=== PATIENT | female | born 1975 | race African-American/Black ===

== ENCOUNTER 2018-09-24 13:46 | Observation (INO) | payer OTHER ==
[2018-09-24 14:37] LABS: #Basophils 0.1 thou/uL (0.0-0.2); #Eosinphils 0.1 thou/uL (0.0-0.7); #Lymphocytes 2.8 thou/uL (1.20-3.40); #Monocytes 0.6 thou/uL (0.11-0.59); #Neutrophils 4.2 thou/uL (1.40-6.50); %Basophils 1.7 % (0.0-1.0); %Eosinophils 1.1 % (0.0-10.0); %Lymphocytes 35.7 % (21.0-51.0); %Monocytes 7.3 % (0.0-10.0); %Neutrophils 54.1 % (42.0-75.0); Hemoglobin 5.5 g/dL (12.0-16.0); Mean Corpuscular Hemoglobin 14.9 pg (27.0-31.0); Mean Platelet Volume 5.8 fL (7.4-10.4); Platelet Count 606 thou/uL (130-400); RBC Distribution Width 19.6 % (11.5-14.5); Red Blood Cell (RBC) Count 3.68 mill/uL (4.20-5.40); White Blood Cell (WBC) Count 7.7 thou/uL (4.8-10.8)
[2018-09-24 15:04] LABS: Albumin 4.3 g/dL (3.5-5.0); Alkaline Phosphatase 70 U/L (40-150); Bilirubin, Total 0.4 mg/dL (0.2-1.2); Calc. Creatinine Clearance 0 mL/min (70-130); Calcium 9.5 mg/dL (7.8-10.44); Carbon Dioxide 26 mmol/L (22-29); Chloride 103 mmol/L (98-107); Estimated GFR-MDRD 84; Globulin 3.7 g/dL (2.4-3.5); Glucose 95 mg/dL (70-105); Potassium 3.8 mmol/L (3.5-5.1); Sodium 137 mmol/L (136-145)
[2018-09-24 15:05] LABS: BUN (Urea Nitrogen) 8 mg/dL (7.0-18.7)
[2018-09-24 15:06] LABS: AST (SGOT) 12 U/L (5-34)
[2018-09-24 15:07] LABS: ALT (SGPT) Less than 7 U/L (8-55)
[2018-09-24 15:09] LABS: Anisocytosis MODERATE=16-30 cells (100X) (0-5/hpf); Hypochromia MODERATE=16-30 cells (100X) (0-5/hpf); MDiff Complete? YES; Microcytosis MODERATE=15-30 cells (100X) (0-5/hpf); Ovalocytes SLIGHT = 2-5 cells (100X) (0-1/hpf); Platelet Morphology Comment Appears Increased; Poikilocytosis SLIGHT = 6-15 cells (100X) (0-5/hpf); Polychromasia MODERATE = 3-4 cells (100X) (0-2/hpf); Reflex for Review?? YES; Schistocytes SLIGHT = 2-5 cells (100X) (0-1/hpf); Spherocytes SLIGHT = 1-5 cells (100X) (None Seen); Target Cells SLIGHT = 2-5 cells (100X) (0-1/hpf); Tear Drops SLIGHT = 2-5 cells (100X) (0-1/hpf)
[2018-09-24 15:15] LABS: Anion Gap 11 mmol/L (10-20)
--- NOTE | 2018-09-24 16:57 | PDOC.FPRHP ---
- History of Present Illness Chief Complaint: Tired, SOB History of Present Illness: 42 yo AA freedom impaired F came in after found at outside [facility] to be severly anemic. Pt reports having increasing tiredness and SOB after walking a short distance. Had labs drawn at [facility] and hgb was found to be 5.5. Pt reports having monthly period. Reports menstration as heavy. States she has to use 1 tampon and 3 pads and changes this 3-4x a day. Pt reports this going on for months. Denies any abdominal pain. Denies any n/v/d/c. Denies any blood in her stool. Reports having headaches and feeling more tired than usual. Pt had pap smear a week ago which was normal Pt is a delivered via all w/o any complications. - Allergies/Adverse Reactions Allergies Allergy/AdvReac Type Severity Reaction Status Date / Time No Known Allergies Allergy Unverified 09/24/18 16:57 - Home Medications Medication Instructions Recorded Confirmed Type No Known 09/24/18 09/24/18 History - History PMHx: None PSHx: None FHx: Noncontributory Social: Past marijuana user, Denies alcohol or tobacco abuse - Review of Systems General: reports: fatigue. denies: fever/chills, weight/appetite/sleep changes Eyes: denies: eye pain, vision changes ENT: denies: nasal congestion, rhinorrhea Respiratory: reports: exercise intolerance. denies: cough, congestion, shortness of breath Cardiovascular: denies: chest pain, palpitation, edema Gastrointestinal: denies: nausea, vomiting, diarrhea, constipation, abdominal pain, GI bleeding Genitourinary: denies: incontinence, dysuria, polyuria Skin: denies: rashes, lesions Musculoskeletal: denies: pain, tenderness Neurological: denies: numbness, syncope, seizure, weakness Psychological: denies: anxiety, depression - Vital signs BP: [122/80] HR: [87] RR: [16] Tmax: [98.2] Pox: [100]% on [RA] - Physical Exam Constitutional: NAD, awake, alert and oriented, well developed HEENT: normocephalic and atraumatic, grossly normal vision, grossly normal hearing, good dention Neck: trachea midline, no LAD, no JVD, no thyromegaly Chest: no-tender to palpation, no lesions Heart: RRR, normal S1/S2, no murmurs/rubs/gallops, pulses present, no edema Lungs: CTAB, no respiratory distress, good air movement, no rales/rhonchi, no wheezing Abdomen: soft, non-tender, bowel sounds present, no masses/distention, no hernias Neurological: no focal deficit, normal sensation Skin: no rash/lesions, capillary refill <2 seconds Heme/Lymphatic: no unusual bruising or bleeding, no purpura Psychiatric: normal mood and affect, good judgment and insight, intact recent and remote memory FMR H&P: Results - Labs Result Diagrams: 09/25/18 06:01 09/24/18 14:20 Lab results: WBC 7.7 thou/uL (4.8-10.8) 09/24/18 14:20 Hgb 5.5 g/dL (12.0-16.0) L* 09/24/18 14:20 Hct 20.3 % (36.0-47.0) L 09/24/18 14:20 MCV 55.0 fL (78.0-98.0) L 09/24/18 14:20 Plt Count 606 thou/uL (130-400) H 09/24/18 14:20 Neutrophils % 54.1 % (42.0-75.0) 09/24/18 14:20 Sodium 137 mmol/L (136-145) 09/24/18 14:20 Potassium 3.8 mmol/L (3.5-5.1) 09/24/18 14:20 Chloride 103 mmol/L (98-107) 09/24/18 14:20 Carbon Dioxide 26 mmol/L (22-29) 09/24/18 14:20 BUN 8 mg/dL (7.0-18.7) 09/24/18 14:20 Creatinine 0.76 mg/dL (0.6-1.1) 09/24/18 14:20 Glucose 95 mg/dL (70-105) 09/24/18 14:20 Calcium 9.5 mg/dL (7.8-10.44) 09/24/18 14:20 Total Bilirubin 0.4 mg/dL (0.2-1.2) 09/24/18 14:20 AST 12 U/L (5-34) 09/24/18 14:20 ALT Less than 7 U/L (8-55) L 09/24/18 14:20 Alkaline Phosphatase 70 U/L (40-150) 09/24/18 14:20 Serum Total Protein 8.0 g/dL (6.0-8.3) 09/24/18 14:20 Albumin 4.3 g/dL (3.5-5.0) 09/24/18 14:20 FMR H&P: A/P - Problem List (1) Iron (Fe) deficiency anemia Current Visit: Yes Status: Acute Code(s): D50.9 - IRON DEFICIENCY ANEMIA, UNSPECIFIED (2) Abnormal uterine bleeding (AUB) Current Visit: Yes Status: Acute Code(s): N93.9 - ABNORMAL UTERINE AND VAGINAL BLEEDING, UNSPECIFIED - Plan Symptomatic Anemia 2/2 likely AUB -Hgb 5.5 upon admission. VS stable. Will transfuse 2uPRBC. Will recheck AM CBC and trend -Will get pelvic U/S. Advise pt continue workup outpatient for heavy menstration -Will check TSH DVT ppx- SCD's GERD ppx- Tums Addendum - Attending - Attending Attestation Date/Time: 09/25/18 1790 I personally evaluated the patient and discussed the management with Dr. Grady on 08/25/2018 I agree with the History, Examination, Assessment and Plan documented above with any addition or exceptions noted below- 42 yo female presented with fatigue , SOB for last 2-3 months worsening in the last week. Seen at [facility] [place] [facility] and lab studies found hemoglobin=5.5. Patient sent to hospital for further evacuation. Patient denies any hematochezia, melena. Does report heavy menstrual cycles for the last year. States that her menses usually lasts 5 days and she uses a tampon and 3 pads every 3-4 hours. She also reports that over last 6 months she has an additional 2 days of bleeding about 1 week after her menses ends. Denies any family history of bleeding disorders. PMH/PSH/Meds/ All reviewed and agree with resident's documentation. T98.3 BP 133/777 P80 RR16 Exam repeated by me and agree with resident's findings. Labs: H/H=5.5/20.3 , WBC=7.7, Pee=202. A/P: 1) Iron deficiency anemia secondary to abnormal uterine bleeding- will transfuse 2u pRBCs. Recheck H/H in AM. Start iron replacement. 2) Abnormal uterine bleeding- will check pelvic usg. Patient reports normal pap smear 2 weeks ago. May consider hormonal therapy versus referral to [facility] for surgical evaluation.
[2018-09-24] MEDS ORDERED: Bisacodyl 5 MG TAB PO PRN (17:08)
[2018-09-24] MEDS ORDERED: Ondansetron PF 4 MG/2 ML Vial IVP PRN (17:08)
[2018-09-24] MEDS ORDERED: Calcium Carbonate 500 MG ChewTAB PO PRN (17:08)
[2018-09-24] MEDS ORDERED: Ondansetron ODT 4 MG TAB PO PRN (17:08)
[2018-09-24] MEDS ORDERED: Ferrous Sulfate 325 MG TAB PO SCH ×2 (17:08→20:00)
[2018-09-24] MEDS ORDERED: Acetaminophen 650 MG Suppository PR PRN (17:08)
[2018-09-24] MEDS ORDERED: Bisacodyl 10 MG SUPP PR PRN (17:08)
[2018-09-24] MEDS ORDERED: Acetaminophen 325 MG TAB PO PRN (17:08)
[2018-09-24 17:26] VITALS: BMI 36.4
[2018-09-25 06:20] LABS: #Eosinphils 0.1 thou/uL (0.0-0.7); #Lymphocytes 2.8 thou/uL (1.20-3.40); #Monocytes 0.7 thou/uL (0.11-0.59); #Neutrophils 4.7 thou/uL (1.40-6.50); %Basophils 0.6 % (0.0-1.0); %Eosinophils 1.5 % (0.0-10.0); %Lymphocytes 33.5 % (21.0-51.0); %Monocytes 8.2 % (0.0-10.0); %Neutrophils 56.2 % (42.0-75.0); Hemoglobin 7.6 g/dL (12.0-16.0); Mean Corpuscular HGB CONC 29.5 g/dL (32.0-36.0); Mean Corpuscular Hemoglobin 18.5 pg (27.0-31.0); Mean Corpuscular Volume 62.7 fL (78.0-98.0); Mean Platelet Volume 5.4 fL (7.4-10.4); Platelet Count 507 thou/uL (130-400); RBC Distribution Width 27.5 % (11.5-14.5); Red Blood Cell (RBC) Count 4.09 mill/uL (4.20-5.40); White Blood Cell (WBC) Count 8.3 thou/uL (4.8-10.8)
--- NOTE | 2018-09-25 06:45 | PDOC.FM ---
- Subjective Subjective: Patient reports feeling better this morning. Denies dizziness or lightheadedness with ambulation. Has heavy menstrual periods but no intermenstrual bleeding. - Objective Vital Signs & Weight: Vital Signs (12 hours) Temp Pulse Pulse Resp BP BP Pulse Ox 09/25/18 04:12 98.1 F 78 18 113/69 100 09/25/18 00:14 98.0 F 85 18 115/71 100 09/24/18 22:05 97.5 F L 88 18 102/77 100 09/24/18 21:45 98.5 F 82 18 114/73 100 09/24/18 20:00 97.5 F L 88 18 102/77 100 09/24/18 19:02 98.5 F 100 Weight Weight 96.298 kg Most Recent Monitor Data Heart Rate from ECG 90 NIBP 118/66 Respiration from ECG 16 I&O: 09/23/18 09/24/18 09/25/18 06:59 06:59 06:59 Intake Total 350 Balance 350 Result Diagrams: 09/25/18 06:01 09/24/18 14:20 Phys Exam - Physical Examination Constitutional: NAD Respiratory: clear to auscultation bilateral Cardiovascular: RRR Gastrointestinal: soft, non-tender Musculoskeletal: no edema Neurological: non-focal Psychiatric: normal affect Skin: normal turgor Dx/Plan (1) Symptomatic anemia Code(s): D64.9 - ANEMIA, UNSPECIFIED Status: Acute (2) Abnormal uterine bleeding (AUB) Code(s): N93.9 - ABNORMAL UTERINE AND VAGINAL BLEEDING, UNSPECIFIED Status: Acute (3) Iron (Fe) deficiency anemia Code(s): D50.9 - IRON DEFICIENCY ANEMIA, UNSPECIFIED Status: Acute (4) Fibroid Code(s): D21.9 - BENIGN NEOPLASM OF CONNECTIVE AND OTHER SOFT TISSUE, UNSP Status: Acute - Plan Plan: Symptomatic Anemia 2/2 AUB, fibroid -Hgb 5.5 upon admission. VS stable. s/p 2uPRBC. Hgb improved to 7.6 today -Will get pelvic U/S. Advise pt continue workup outpatient for heavy menstration -TSH wnl - US showed fibroid 7 cm - Patient would benefit greatly from hormonal therapy to suppress menstrual cycles and decrease bleeding. No family hx clots, pt nonsmoker. Recommended taking ibuprofen during menstruation as well. DVT ppx- SCD's GERD ppx- Tums Dispo: plan for discharge today with outpatient [facility] follow up for fibroid. Will discharge with iron supplement, hormonal pills, ibuprofen. Addendum - Attending - Attending Attestation Date/Time: 09/25/18 6185 I personally evaluated the patient and discussed the management with Dr. Chatman. I agree with the History, Examination, Assessment and Plan documented above with any addition or exceptions noted below. Patient here for symptomatic anemia in setting of AUB due to fibroids based on pelvic u/s. She is feeling improved today. Denies shortness of breath with exertion. Discussed hormonal ways to decrease her AUB as well as ibuprofen therapy. Anticipate discharge later today and will need outpatient PCP and OBGYN follow up.
--- NOTE | 2018-09-25 08:25 | ULT ---
Sonogram pelvis, transabdominal and transvaginal imaging with duplex evaluation HISTORY: Pelvic bleeding and pain. FINDINGS: Urinary bladder is decompressed. Uterus is enlarged with a very heterogeneous echotexture. It measures up to 11.0 cm. Along the posterior myometrium is a circumscribed heterogeneous hypoechoic mass measuring up to 7.4 cm x 7.3 cm x 5.3 cm. No free fluid apparent within the pelvis. Endometrium is 0.3 cm with small amount of fluid. Left ovary measures up to 3.5 cm with a dominant follicle. Good color and spectral Doppler flow. Right ovary not visualized with transabdominal or transvaginal imaging. No mass is apparent. IMPRESSION: Prominent fibroid involvement of the uterus. Largest is 7.4 cm.
[2018-09-25] MEDS: Ferrous Sulfate 325 MG TAB PO SCH ×2 (09:06→16:43)
[2018-09-25 11:17] VITALS: TEMP 98
[2018-09-25 16:44] VITALS: BP 121/85
== END 2018-09-25 16:49 ==
LOC: ERS 13:46 → T4-B 16:50
PROVIDERS: ADMIT Family Medicine; ATTEND Family Medicine
DX: D25.9 Leiomyoma of uterus, unspecified (principal); D50.9 Iron deficiency anemia, unspecified
CPT/HCPCS: 36415; 36430; 76856; 80053; 84443; 85025; 85060; 86850; 86900; 86901; 99285; G0378; P9016

== ENCOUNTER 2018-11-21 10:56 | Emergency (ER) | payer OTHER ==
--- NOTE | 2018-11-21 12:14 | ULT ---
EXAM: US Gallbladder RUQ CLINICAL HISTORY: Nausea. Vomiting. Right upper quadrant pain. COMPARISON: None. FINDINGS: Pancreas: The head of the pancreas has a normal echotexture. The remainder of the pancreas is obscur ed by bowel gas Liver:Normal hepatic parenchymal echotexture. No hepatic masses or intrahepatic biliary dilatation. C ontour of the hepatic margin is maintained. Right hepatic lobe measures 2.9 cm Portal vein: Patent with appropriate directional flow Gallbladder: Echogenic focus with shadowing in the lumen of gallbladder measuring 2.5 x 2.2 x 2.3 cm. Nonmobile gallstone is favored. The bladder is somewhat distended measuring 14 cm in maximum dimension. The bladder wall is not thickened. No pericholecystic fluid. Nava's sign:Negative Bile ducts: 0.3 Right kidney: No hydronephrosis. Right renal cortical thinning. Right kidney measures 12.4 x 4.6 x 5. 9 cm in length. IMPRESSION: 1. Sonographic evidence of cholelithiasis. Gallstone appears to be nonmobile. HIDA scan may be benefi cial.
[2018-11-21 12:32] LABS: #Lymphocytes 1.3 thou/uL (1.20-3.40); #Monocytes 0.2 thou/uL (0.11-0.59); #Neutrophils 12.7 thou/uL (1.40-6.50); %Basophils 0.3 % (0.0-1.0); %Lymphocytes 8.9 % (21.0-51.0); %Monocytes 1.2 % (0.0-10.0); %Neutrophils 89.5 % (42.0-75.0); Mean Corpuscular HGB CONC 31.5 g/dL (32.0-36.0); Mean Corpuscular Hemoglobin 24.3 pg (27.0-31.0); Mean Corpuscular Volume 77.1 fL (78.0-98.0); RBC Distribution Width 21.9 % (11.5-14.5); Red Blood Cell (RBC) Count 4.97 mill/uL (4.20-5.40); White Blood Cell (WBC) Count 14.2 thou/uL (4.8-10.8)
[2018-11-21 12:46] LABS: BHCG - Serum Negative (NEGATIVE); Pregs Control Background? CLEAR/WHITE (CLR/WHITE); Pregs Control Bar Appear? YES (CONTROL BAR)
[2018-11-21 12:48] LABS: Bacteria/HPF 4+ HPF (None Seen); Bilirubin Negative (Negative); Blood, Urine Negative (Negative); Clarity Clear (Clear); Glucose, Urine (Dipstick) Normal (Negative); Leukocyte Negative Leu/uL (Negative); Nitrite Negative (Negative); Protein, Urine (Dipstick) 30 mg/dL (Neg-Trace); RBC/HPF 0-3 HPF (0-3); Squamous Epithelial 0-3 HPF (0-3); Urobilinogen Normal mg/dL (Less than 2); WBC/HPF 0-3 HPF (0-3)
[2018-11-21] MEDS ORDERED: Ketorolac Tromethamine 30 MG/ML VIAL ONE (12:52)
[2018-11-21] MEDS ORDERED: Pantoprazole 40 MG VIAL ONE (12:52)
[2018-11-21] MEDS ORDERED: Ondansetron PF 4 MG/2 ML Vial ONE (12:52)
[2018-11-21 12:54] LABS: ALT (SGPT) 14 U/L (8-55); AST (SGOT) 17 U/L (5-34); Albumin 4.6 g/dL (3.5-5.0); Alkaline Phosphatase 76 U/L (40-110); Anion Gap 16 mmol/L (10-20); BUN (Urea Nitrogen) 7 mg/dL (7.0-18.7); Bilirubin, Total 0.3 mg/dL (0.2-1.2); Calc. Creatinine Clearance 0 mL/min (70-130); Calcium 9.8 mg/dL (7.8-10.44); Carbon Dioxide 23 mmol/L (22-29); Chloride 99 mmol/L (98-107); Estimated GFR-MDRD 84; Globulin 4.2 g/dL (2.4-3.5); Glucose 108 mg/dL (70-105); Lipase 22 U/L (8-78); Potassium 3.9 mmol/L (3.5-5.1); Protein, Total 8.8 g/dL (6.0-8.3); Sodium 134 mmol/L (136-145)
[2018-11-21 12:56] LABS: Elliptocytes SLIGHT = 2-5 cells (100X) (0-1/hpf); Hypochromia SLIGHT = 6-15 cells (100X) (0-5/hpf); MDiff Complete? YES; Mean Platelet Volume 5.3 fL (7.4-10.4); Microcytosis SLIGHT = 6-15 cells (100X) (0-5/hpf); Ovalocytes SLIGHT = 2-5 cells (100X) (0-1/hpf); Platelet Count 386 thou/uL (130-400); Platelet Morphology Comment Appears Adequate; Polychromasia SLIGHT = 2-3 cells (100X) (0-2/hpf); Schistocytes SLIGHT = 2-5 cells (100X) (0-1/hpf); Tear Drops SLIGHT = 2-5 cells (100X) (0-1/hpf)
== END 2018-11-21 15:11 | disposition still patient (30) ==
LOC: ERS 10:56
DX: K80.50 Calculus of bile duct without cholangitis or cholecystitis without obstruction (principal); K29.70 Gastritis, unspecified, without bleeding; D64.9 Anemia, unspecified
CPT/HCPCS: 36415; 76705; 80053; 81003; 81015; 83690; 84703; 85025; 93005; 96374; 96375; C9113; J1885; J2405

== ENCOUNTER 2019-01-26 13:34 | Observation (INO) | payer OTHER ==
[2019-01-26 16:18] LABS: #Eosinphils 0.1 thou/uL (0.0-0.7); #Lymphocytes 3.6 thou/uL (1.20-3.40); #Monocytes 0.6 thou/uL (0.11-0.59); #Neutrophils 5.4 thou/uL (1.40-6.50); %Basophils 0.3 % (0.0-1.0); %Eosinophils 0.7 % (0.0-10.0); %Lymphocytes 37.6 % (21.0-51.0); %Monocytes 5.9 % (0.0-10.0); %Neutrophils 55.6 % (42.0-75.0); Hemoglobin 11.7 g/dL (12.0-16.0); Mean Corpuscular HGB CONC 31.8 g/dL (32.0-36.0); Mean Corpuscular Hemoglobin 25.1 pg (27.0-31.0); Mean Corpuscular Volume 78.9 fL (78.0-98.0); Mean Platelet Volume 8.6 fL (7.4-10.4); Platelet Count 275 thou/uL (130-400); RBC Distribution Width 13.3 % (11.5-14.5); Red Blood Cell (RBC) Count 4.67 mill/uL (4.20-5.40); White Blood Cell (WBC) Count 9.6 thou/uL (4.8-10.8)
--- NOTE | 2019-01-26 16:35 | ULT ---
Sonogram right upper quadrant HISTORY: Right upper quadrant pain. Abnormal hepatobiliary scan. FINDINGS: Gallbladder is now distended up to 9.0 cm. Large shadowing stone again demonstrated within the lumen. No gallbladder wall thickening or pericholecystic fluid. Patient was Not tender over the gallbladder fossa at the time of the exam. Liver is unremarkable. No free fluid. IMPRESSION: Cholelithiasis. Gallbladder distention persists. This can be a finding with cystic duct o bstruction and acute cholecystitis. Obstruction also suggested by the abnormal hepatobiliary scan. Patient was not tender over the gallbladder fossa at the time of the exam. Clinical correlation regarding other signs and symptoms of acute cholecystitis is required.
[2019-01-26 16:40] LABS: ALT (SGPT) 12 U/L (8-55); AST (SGOT) 15 U/L (5-34); Albumin 4.1 g/dL (3.5-5.0); Alkaline Phosphatase 70 U/L (40-110); Anion Gap 11 mmol/L (10-20); BUN (Urea Nitrogen) 7 mg/dL (7.0-18.7); Bilirubin, Total 0.5 mg/dL (0.2-1.2); Calc. Creatinine Clearance 0 mL/min (70-130); Calcium 9.2 mg/dL (7.8-10.44); Carbon Dioxide 29 mmol/L (22-29); Chloride 103 mmol/L (98-107); Estimated GFR-MDRD Greater than 90; Globulin 3.5 g/dL (2.4-3.5); Glucose 79 mg/dL (70-105); Lipase 25 U/L (8-78); Potassium 3.5 mmol/L (3.5-5.1); Protein, Total 7.6 g/dL (6.0-8.3); Sodium 139 mmol/L (136-145)
[2019-01-26 18:55] VITALS: BMI 36.2
[2019-01-26] MEDS ORDERED: D5 1/2 NS w/20 mEq KCL 1,000 ML IV SCH (19:00)
[2019-01-26] MEDS ORDERED: Dextrose 5% in Water 1,000 ML IV PRN (20:06)
[2019-01-26] MEDS ORDERED: Morphine 2 MG/ML SYRINGE SLOW IVP PRN (20:06)
[2019-01-26] MEDS ORDERED: Dextrose 50% Abboject 50 ML SYRINGE SLOW IVP PRN (20:06)
[2019-01-26] MEDS ORDERED: Ondansetron PF 4 MG/2 ML Vial IVP PRN (20:06)
[2019-01-26] MEDS: D5 1/2 NS w/20 mEq KCL 1,000 ML IV SCH (21:13)
[2019-01-26] MEDS: Famotidine 20 MG TAB PO SCH (21:13)
[2019-01-27] MEDS: D5 1/2 NS w/20 mEq KCL 1,000 ML IV SCH ×3 (05:46→21:17)
[2019-01-27] MEDS: Famotidine 20 MG TAB PO SCH ×2 (09:02→21:16)
--- NOTE | 2019-01-27 12:16 | HP ---
CHIEF COMPLAINT: Right upper quadrant abdominal pain, cholelithiasis. HISTORY OF PRESENT ILLNESS: The patient is a very pleasant 43-year-old black female. She is an inmate at the [facility]. She gives a three month history of intermittent right upper quadrant abdominal pain. She was admitted to the hospital about 3 months ago for severe anemia and this is felt to be secondary to her menstrual periods. She was placed on supplemental iron therapy and oral contraceptive pill. It is noted that her hemoglobin level has risen from 7 up to 12. In evaluation of her abdominal pain, she had a HIDA scan performed. This revealed that no contrast entered the gallbladder, potentially consistent with acute cholecystitis. Gallbladder ultrasound was obtained revealing a large shadowing stone within the gallbladder. CBC and liver function tests were essentially normal. She is admitted at this time for management of her gallbladder. PAST MEDICAL HISTORY: Significant for blood loss anemia. PAST SURGICAL HISTORY: None. MEDICATIONS: Oral iron and oral contraceptive pill. ALLERGIES: NONE. PERSONAL AND SOCIAL HISTORY: She is from [place]. She has four children. She is incarcerated for a drug-related offense, but has never used illegal drugs other than marijuana. REVIEW OF SYSTEMS: Otherwise unremarkable. FAMILY HISTORY: Noncontributory. PHYSICAL EXAMINATION: VITAL SIGNS: She is afebrile. Vitals signs within normal limits. GENERAL: She is a well-developed, well-nourished, pleasant black female in no acute distress. She is alert and oriented x3. HEAD, EYES, EARS, NOSE, AND THROAT: Unremarkable. NECK: Supple without mass or tenderness. LUNGS: Clear to auscultation throughout. CARDIAC: Regular rate and rhythm without murmur. ABDOMEN: Soft. There is no focal tenderness on today's examination. EXTREMITIES: Unremarkable. ASSESSMENT: The patient with symptomatic potentially obstructing cholelithiasis. The ultrasound had indicated this was possibly a 4 cm gallstone. I recommended laparoscopic cholecystectomy. I explained to her, however, that if her gallbladder is in fact is large, then I have to make the extraction incision substantially larger to be able to remove the gallbladder and gallstone. She understands and agrees to proceed with surgery at this time. Job ID: [id number]
[2019-01-27] MEDS ORDERED: Lidocaine 1% PF 5 ML VIAL ONE (14:47)
[2019-01-28] MEDS ORDERED: D5 1/2 NS w/20 mEq KCL 1,000 ML ONE (05:54)
[2019-01-28] MEDS ORDERED: Bupivacaine PF 0.5% 30 ML VIAL ONE (09:40)
[2019-01-28] MEDS ORDERED: Lidocaine 1% w/Epinephrine 1:100K 20 ML VIAL ONE (09:40)
[2019-01-28] MEDS ORDERED: Glycopyrrolate 0.2 MG/ML 5 ML SYRINGE ONE (09:47)
[2019-01-28] MEDS ORDERED: PROPOFOL 200 MG/20 ML VIAL ONE (09:47)
[2019-01-28] MEDS ORDERED: Ondansetron PF 4 MG/2 ML Vial ONE (09:47)
[2019-01-28] MEDS ORDERED: Rocuronium Bromide 10 MG/ML (10ML VIAL) ONE (09:47)
[2019-01-28] MEDS ORDERED: Fentanyl 100 MCG/2 ML VIAL ONE ×2 (10:01→11:33)
[2019-01-28] MEDS ORDERED: Midazolam HCl 2 mg/2 ml Vial ONE (10:01)
[2019-01-28 13:02] VITALS: BP 116/74; TEMP 98.3
[2019-01-28] MEDS: D5 1/2 NS w/20 mEq KCL 1,000 ML IV SCH ×2 (13:06→15:14)
[2019-01-28] MEDS: Famotidine 20 MG TAB PO SCH (13:07)
--- NOTE | 2019-01-30 07:59 | DIS ---
DATE OF ADMISSION: 01/26/2019 DATE OF DISCHARGE: 01/28/2019 ADMISSION DIAGNOSIS: Symptomatic cholelithiasis. DISCHARGE DIAGNOSIS: Symptomatic cholelithiasis. PROCEDURE PERFORMED: Laparoscopic cholecystectomy. ADMISSION HISTORY: The patient is a pleasant black female prisoner. She presented for outpatient HIDA scan, which showed nonfilling of the gallbladder can potentially worsen for acute cholecystitis. She went from there to the emergency room, where an ultrasound was performed revealing a large gallstone within the gallbladder. Because of concern regarding complete obstruction of the gallbladder, she was admitted to my service. HOSPITAL COURSE: She was admitted in the evening of January 26. I saw her on January 27 and scheduled her for surgery on that day. Unfortunately, due to staffing issues within the operating room, her operation could be performed until late and it was therefore canceled for the and rescheduled for the . In the morning of January 28, I was able to proceed with laparoscopic cholecystectomy. This was performed uneventfully. She had 2 large gallstones within the gallbladder. There was no acute inflammatory change in the gallbladder. After the surgery, she had no significant problems. She had minimal discomfort, tolerated her diet and was felt stable for discharge. She was discharged to the [facility] and asked to follow up with myself in 2 weeks. Discharge medication of Tylenol No. 3 was recommended. DISCREPANCY: Dictated age 45, ADT indicates patient is 43. Job ID: [id number]
--- NOTE | 2019-01-30 07:59 | OP ---
DATE OF PROCEDURE: 01/28/2019 PREOPERATIVE DIAGNOSIS: Symptomatic cholelithiasis. POSTOPERATIVE DIAGNOSIS: Symptomatic cholelithiasis. PROCEDURE PERFORMED: Laparoscopic cholecystectomy. ANESTHESIA: General endotracheal. INDICATIONS: Patient is a 43-year-old black female. She presents to the hospital with symptoms referable to her gallbladder and ultrasound proven cholelithiasis. She is taken to the operating room at this time for laparoscopic cholecystectomy. DESCRIPTION OF OPERATION: Informed consent was obtained. The patient was taken to the operating room where general endotracheal anesthesia was obtained with the patient in the supine position. The abdomen was prepped with Betadine and draped in the usual sterile fashion. 0.25% Marcaine with epinephrine was infiltrated below the umbilicus and a 10 mm infraumbilical incision was created. A Veress needle was passed through this incision into the peritoneal cavity. A pneumoperitoneum was established using carbon dioxide up to a pressure of 15 mmHg. Local anesthetic was infiltrated and 3 additional 5 mm right upper quadrant incisions were created. Through the mid incision, a 5 mm port was passed into the peritoneal cavity. The camera was passed through this port and under direct vision, an 11 port was passed through the infraumbilical incision. The camera was replaced through this port, and under direct vision, 2 additional 5 mm ports were passed through the incisions already created. The gallbladder was grasped and retracted in a cephalad direction. Minimal adhesions were bluntly stripped away from the apex of the gallbladder, and the apex was retracted laterally and inferiorly. Careful dissection was carried out to the apex of the gallbladder to identify the cystic duct and cystic artery. These were each carefully dissected circumferentially. The duct was of normal caliber. Both the duct and the artery were divided between clips, leaving 2 on the side to remain within the abdomen. The gallbladder was then dissected out of the gallbladder fossa using electrocautery and removed through the infraumbilical port site. The fascia was closed with 0 Vicryl suture and a GraNee needle. The right upper quadrant was inspected and irrigated. All irrigant was aspirated. All ports and instruments were removed under direct vision. Pneumoperitoneum was carefully evacuated. Additional local anesthetic was infiltrated into each port site. The skin edges were approximated with 4-0 Monocryl subcuticular sutures, and Dermabond was placed externally. There were no complications. The patient tolerated the procedure well and was taken to the recovery room in stable condition. FINDINGS: She had two large hard gallstones within her gallbladder. These had to be removed percutaneously to allow gallbladder extraction and the fascial defect had to be enlarged to allow removal as well. There were some adhesions to the anterior abdominal wall at the site of her prior umbilical incision. These were taken down uneventfully with electrocautery. There were no complications. Patient tolerated the procedure well and was taken to recovery room in stable condition. Job ID: [id number]
== END 2019-01-28 15:20 ==
LOC: ERS 13:34 → SURG A 18:37
PROVIDERS: ADMIT Specialist; ATTEND Specialist
PROC: 0FT44ZZ Resection of Gallbladder, Percutaneous Endoscopic Approach (ICD-10-PCS; principal; 2019-01-28)
DX: K80.10 Calculus of gallbladder with chronic cholecystitis without obstruction (principal); D50.0 Iron deficiency anemia secondary to blood loss (chronic); Z79.899 Other long term (current) drug therapy
CPT/HCPCS: 36415; 76705; 78227; 80053; 83690; 85025; 88304; 96361; 96374; A9537; G0378; J0690; J2001; J2250; J2270; J2405; J2704; J3010; S0020